=== PATIENT | male | born 1950 | race Caucasian/White ===

== ENCOUNTER 2016-11-18 11:28 | Day surgery (SDC) | payer OTHER ==
[2016-11-18 12:02] VITALS: TEMP 98.1
[2016-11-18] MEDS ORDERED: ALPRAZolam 0.5 MG TAB PO STA (12:26)
--- NOTE | 2016-11-18 14:02 | US ---
EXAMINATION TYPE: US FNA thyroid DATE OF EXAM: 11/18/2016 COMPARISON: Prior ultrasound thyroid 07/23/2009 HISTORY: Thyroid nodule, E04.1 Maximal barrier technique was utilized. Ultrasound using sterile technique. The skin overlying the no dule was localized with ultrasound and the overlying skin prepped and draped. Lidocaine used for loca l anesthesia. 5 passes with a 25-gauge needle were made into the nodule under ultrasound guidance. As pirate specimen submitted to cytology. Following the procedure hemostasis achieved. No immediate comp lication IMPRESSION: Status post ultrasound-guided fine-needle aspiration of thyroid nodule, pathology pending .
[2016-11-18 14:48] VITALS: BP 135/70; PULSE 77; RESP 16
== END 2016-11-18 13:45 | disposition home or self-care (01) ==
LOC: RADPROMAIN 11:28
PROVIDERS: ATTEND Family Medicine
DX: E04.1 Nontoxic single thyroid nodule (principal)
CPT/HCPCS: 10022; 76942; 88173; 88305

== ENCOUNTER → 2016-11-21 | Outpatient (CLI) | payer OTHER ==
--- NOTE | 2016-11-21 16:54 | US ---
EXAMINATION TYPE: US carotid duplex BILAT DATE OF EXAM: 11/21/2016 COMPARISON: NONE CLINICAL HISTORY: I73.9 peripheral vascular disease. bruit EXAM MEASUREMENTS: RIGHT: Peak Systolic Velocity (PSV) cm/sec ----- Right CCA: 120.0 ----- Right ICA: 127.3 ----- Right ECA: 138.3 ICA/CCA ratio: 1.1 RIGHT: End Diastole cm/sec ----- Right CCA: 35.7 ----- Right ICA: 38.7 ----- Right ECA: 20.4 LEFT: Peak Systolic Velocity (PSV) cm/sec ----- Left CCA: 110.8 ----- Left ICA: 127.0 ----- Left ECA: 162.5 ICA/CCA ratio: 1.1 LEFT: End Diastole cm/sec ----- Left CCA: 29.2 ----- Left ICA: 44.6 ----- Left ECA: 23.6 VERTEBRALS (direction of flow): Right Vertebral: Antegrade Left Vertebral: Antegrade No significant stenosis seen, mildly elevated velocities noted. Bilateral plaque at bulbs. Intimal thickening is evident. There are occasional small plaques present. Doppler waveforms appear n ormal. A larger plaque is in the distal left internal carotid artery. IMPRESSION: 1. Narrowing approaching 50% within the bilateral internal carotid arteries. Visual inspection this may be slightly greater on the left. Ratios are not elevated however. Criteria for Assigning % of Stenosis / Diameter reduction (Estimation based on the indirect measurements of the internal carotid artery velocities (ICA PSV). 1. Normal (no stenosis)=ICA PSV < 125 cm/s: ratio < 2.0: ICA EDV<40 cm/s. 2. Less than 50% stenosis=ICA PSV < 125 cm/s: ratio < 2.0: ICA EDV<40 cm/s. 3. 50 to 69% stenosis=ICA PSV of 125 to 230 cm/s: ratio 2.0 ? 4.0: ICA EDV 40-100 cm/s. 4. Greater than 70% stenosis to near occlusion= ICA PSV > 230 cm/s: ratio > 4.0: ICA EDV > 100 cm/s. 5. Near occlusion= ICA PSV velocities may be low or undetectable: variable ratio and ICA EDV. 6. Total occlusion=unable to detect flow.
== END | disposition home or self-care (01) ==
LOC: RADUSWWP 16:26
PROVIDERS: ATTEND Family Medicine
DX: I65.23 Occlusion and stenosis of bilateral carotid arteries (principal)
CPT/HCPCS: 93880

== ENCOUNTER → 2018-01-27 | Outpatient (CLI) | payer OTHER ==
[2018-01-27 16:05] LABS: Blood Urea Nitrogen 17 mg/dL (9-20)
--- NOTE | 2018-01-27 22:43 | CT ---
EXAMINATION TYPE: CT soft tissue neck w con DATE OF EXAM: 01/27/2018 COMPARISON: None HISTORY: 67-year-old male THROAT HOARSENESS X8 MONTHS TECHNIQUE: Contiguous axial scanning of the soft tissues of the neck performed with IV Contrast, saleem ent injected with 100 mL of Isovue 300. Coronal/sagittal reconstructions performed. CT DLP: 624 mGycm Automated exposure control for dose reduction was used. FINDINGS: Moderate to severe mucosal thickening within the ethmoid air cells and frontal sinuses, complete opac ification of the right sphenoid sinus, and mild mucosal thickening along the floors of the bilateral maxillary sinuses. Mastoid air cells are well pneumatized. Visualized intracranial structures, orbits and globes are clear. Nasopharynx is clear. Oropharynx is clear. Epiglottis and prevertebral soft tissues are within normal limits. The glottic and subglottic structures as well as the tracheal column and visualized upper lungs are c lear. Heterogeneous enlargement of the left lobe of the thyroid gland should be correlated with patient's p revious renal ultrasound. The submandibular and parotid glands are satisfactory. No cervical lymphadenopathy no suspicious neck masses seen. Lymph nodes in the upper neck measuring 8 mm Bones: Mild to moderate degenerative disc disease mid to lower cervical spine. IMPRESSION: 1. NO ABNORMAL SOFT TISSUE SWELLING, MUCOSAL SPACE ABNORMALITY, OR CERVICAL LYMPHADENOPATHY SEEN. 2. MODERATE TO SEVERE CHRONIC PANSINUS DISEASE. 3. HETEROGENEOUS ENLARGEMENT OF THE LEFT LOBE OF THE THYROID GLAND CAN BE CORRELATED WITH PATIENT'S P REVIOUS THYROID ULTRASOUND AND FNA.
== END | disposition home or self-care (01) ==
LOC: RADCTMAIN 15:25
PROVIDERS: ATTEND Otolaryngology
DX: E04.9 Nontoxic goiter, unspecified (principal); R49.0 Dysphonia
CPT/HCPCS: 82565; 84520; 70491; 36415; Q9967

== ENCOUNTER → 2018-02-08 | Outpatient (CLI) | payer OTHER ==
--- NOTE | 2018-02-08 17:42 | US ---
EXAMINATION TYPE: US thyroid st tissue head/neck DATE OF EXAM: 02/08/2018 COMPARISON: CT 01/27/2018 and FNA from 11/18/2016 CLINICAL HISTORY: 67-year-old male E04.[address], pt states recent change in voice TECHNIQUE: Multiple sonographic images of the thyroid gland are obtained. GLAND SIZE: Right Lobe: 4.0 x 1.5 x 1.1 cm Overall Parenchyma: homogenous Left Lobe: 4.1 x 1.9 x 1.6 cm Overall Parenchyma: homogeneous Isthmus Thickness: 0.2 cm NODULES RIGHT: # of nodules measured on right: 0 LEFT: # of nodules measured on left: 2 1. 2.1 X 1.8 x 1.4 cm isoechoic solid nodule at the mid pole with well-defined margins; This nodul e is wider than tall and shows intranodular vascularity. Prior size: 2.1 x 1.8 x 1.7 cm, seen on FNA 2. 0.7 X 0.4 x 0.5 cm hypoechoic solid nodule at the mid pole with well-defined margins; This nodul e is wider than tall and shows intranodular vascularity. Prior size: The patient 11/18/2016 FNA exam, a 4 mm nodule (stable in this dimension) is seen in t his same location but is not imaged in the long axis plane. Suspect this nodule to be stable. Bilateral neck scanned, no evidence of lymphadenopathy. Two nodules left lobe. IMPRESSION: 1. Solitary 2.1 cm solid nodule in the left midpole, previously sampled on 11/18/2016, not significant ly changed in the interval. 2. A second 7 mm solid nodule just adjacent seems to have also been present on 11/18/2016.
== END | disposition home or self-care (01) ==
LOC: RADUSWWP 13:21
DX: E04.2 Nontoxic multinodular goiter (principal)
CPT/HCPCS: 76536

== ENCOUNTER → 2018-04-26 | Outpatient (CLI) | payer OTHER ==
[~2018-04-26] MED LIST: REGADENOSON 0.4 MG/5 ML SYRINGE IV ONE
--- NOTE | 2018-04-26 12:51 | NM ---
EXAMINATION TYPE: NM stress lexiscan cardiolite DATE OF EXAM: 04/26/2018 COMPARISON: NONE HISTORY: Chest pain TECHNIQUE: After the intravenous administration of 10.18 mCi Tc 99m Sestamibi - Cardiolite resting S PECT images acquired 45 minutes post injection. The patient received 0.4mg Lexiscan, 25.7 mCi Tc 99m Sestamibi - Stress images obtained [address] injection FINDINGS: Review of stress and rest SPECT images demonstrates no distinct perfusion abnormality. Gated analysi s shows normal wall motion with an estimated left ventricular ejection fraction of 70 %. Transient is chemic dilatation coefficient measures 1.0, within normal limits IMPRESSION: No scintigraphic evidence for reversible ischemia.
--- NOTE | 2018-04-26 14:13 | EST ---
EXERCISE STRESS AGE: 67 SEX: M HT: 5'8" WT: 180 PROTOCOL: Cardiolite Lexiscan Stress Test HEART RATE REST: 65 BLOOD PRESSURE REST: 149/64 MAXIMUM HEART RATE ACHIEVED: 104 MAXIMUM BLOOD PRESSURE: 159/54 85% MPHR: 132 100% MPHR: 155 INDICATIONS: Chest pain. CLINICAL INFORMATION: Baseline rhythm is sinus mechanism, rate 65, normal axis, intervals. Normal echocardiogram. Baseline blood pressure 149/64 mmHg. Patient received an injection of Lexiscan. Electrocardiographic monitoring revealed no evidence of diagnostic ischemic ST deviation. Cardiolite was injected per protocol. CONCLUSION: 1. Nondiagnostic electrocardiogram stress testing. 2. Nuclear images will be reported separately. MMODL / IJN: [id number] /
== END | disposition home or self-care (01) ==
LOC: RADNMMAIN 08:34
DX: R07.89 Other chest pain (principal)
CPT/HCPCS: 93017; 78452; A9500; J2785

== ENCOUNTER 2018-05-14 09:03 | Day surgery (SDC) | payer OTHER ==
[2018-05-12 10:23] VITALS: BMI 27.3
[~2018-05-14 09:03] MED LIST changes: +LACTATED RINGERS 1,000 ML IV SCH; -REGADENOSON 0.4 MG/5 ML SYRINGE IV ONE
[2018-05-14 09:31] VITALS: RESP 16; TEMP 97.9
[2018-05-14] MEDS ORDERED: LIDOCAINE 1% 20 ML VIAL (10MG/ML) FOR IV START INTRADERMA ONE (09:33)
[2018-05-14] MEDS ORDERED: LIDOCAINE 1% INJ 10MG/ML (20 ML MDV) ONE (09:59)
[2018-05-14] MEDS ORDERED: PROPOFOL 10 MG/ML 20 ML VIAL IV ONE (09:59)
--- NOTE | 2018-05-14 10:22 | P.PCN ---
Date of Procedure: 05/14/18 Procedure(s) Performed: BRIEF HISTORY: Patient is a 67-year-old pleasant white male, scheduled for an elective colonoscopy as a part of screening for colorectal neoplasia. PROCEDURE PERFORMED: Colonoscopy with snare polypectomy. PREOPERATIVE DIAGNOSIS: Screening for colon cancer. IV sedation per Anesthesia. PROCEDURE: After informed consent was obtained, the patient, was brought into the endoscopy unit. IV sedation was administered by Anesthesia under continuous monitoring. Digital rectal examination was normal. Initially the Olympus CF- 160 flexible video colonoscope was then inserted in the rectum, gradually advanced into the cecum without any difficulty. Careful examination was performed as the scope was gradually being withdrawn. Ileocecal valve and the appendiceal orifice were visualized and appeared normal. Prep was excellent. Mucosa of the cecum, appeared normal. In the ascending colon there was a 5 mm polyp that was removed by snare polypectomy. The rest of the ascending colon, transverse colon, descending colon, sigmoid colon, and rectum appeared normal. The proximal rectum there was another 5 mm sessile polyp removed by snare polypectomy. Retroflexion was performed in the rectum and no lesions were seen. The patient tolerated the procedure well. IMPRESSION: 5 mm sessile ascending colon polyp status post polypectomy 5 mm sessile proximal rectal polyp status post polypectomy . RECOMMENDATIONS: Findings of this examination were discussed with the patient as well as his family. He was advised to follow with the biopsy results. If the biopsy shows adenoma, he can have a repeat colonoscopy in 5 years.
[2018-05-14 10:39] VITALS: BP 146/75; PULSE 81
== END 2018-05-14 11:04 | disposition home or self-care (01) ==
LOC: ORWHC2ENDO 09:03
PROVIDERS: ATTEND Internal Medicine Gastroenterology
DX: Z12.11 Encounter for screening for malignant neoplasm of colon (principal); D12.2 Benign neoplasm of ascending colon; D12.8 Benign neoplasm of rectum; Z79.82 Long term (current) use of aspirin; Z79.899 Other long term (current) drug therapy; Z72.0 Tobacco use; E07.9 Disorder of thyroid, unspecified; K21.9 Gastro-esophageal reflux disease without esophagitis; R42 Dizziness and giddiness; Z88.0 Allergy status to penicillin; Z88.8 Allergy status to other drugs, medicaments and biological substances
CPT/HCPCS: 88305; 45385; J2001; J2704

== ENCOUNTER → 2018-06-02 | Outpatient (CLI) | payer OTHER | END | disposition home or self-care (01) | LOC: RADUSWWP 09:39 | DX: R07.89 Other chest pain (principal); R53.83 Other fatigue | CPT/HCPCS: 93923 ==

== ENCOUNTER → 2018-08-20 | Day surgery (SDC) | payer OTHER ==
[2018-08-19 09:22] VITALS: BMI 26.6
[~2018-08-20] MED LIST changes: +LIDOCAINE 1% 20 ML VIAL (10MG/ML) FOR IV START INTRADERMA PRN; +LIDOCAINE 1% INJ 10MG/ML (20 ML MDV) ONE; +PROPOFOL 10 MG/ML 20 ML VIAL IV ONE
[2018-08-20 13:29] VITALS: TEMP 98.2
--- NOTE | 2018-08-20 14:26 | P.PCN ---
Date of Procedure: 08/20/18 Procedure(s) Performed: BRIEF HISTORY: Patient is a 67-year-old, pleasant, white male, scheduled for an upper endoscopy as a part of evaluation of persistent epigastric pain, early satiety and weight loss of 10 pounds in the last 3 months duration. He had upper endoscopy done at [facility] a year ago and was diagnosed with gastric ulcer. Repeat upper endoscopy 6 weeks later revealed complete healing of the gastric ulcer. He continues to have persistent symptoms since then. Recent CT of abdomen and pelvis was negative.. PROCEDURE PERFORMED: Esophagogastroduodenoscopy with biopsy. PREOPERATIVE DIAGNOSIS: Persistent epigastric pain of 1 year duration. IV sedation per anesthesia. PROCEDURE: After informed consent was obtained, the patient was brought into the endoscopy unit. IV sedation was administered by Anesthesia under continuous monitoring. Initially the Olympus GIF-140 video endoscope was inserted into the mouth. Esophagus intubated without any difficulty. It was gradually advanced into the stomach and duodenum and carefully examined. The bulb and the second part of the duodenum appeared normal. The scope at this time was withdrawn to the stomach, adequately insufflated with air, and upon careful examination, mucosa of the antrum has scattered erosions and biopsies were done from this area. The body, cardia and the fundus appeared normal. The scope was then withdrawn into the esophagus. The GE junction was located at 40 cm from the incisors. The esophagus appeared normal. There were no erosions or ulcerations seen and the patient tolerated the procedure well. IMPRESSION: 1. Scattered erosions in the antrum consistent with gastritis. 2. No evidence of esophagitis or peptic ulcer disease.. RECOMMENDATIONS: The findings of this examination were discussed with the patient as well as his family. He was advised to follow with the biopsy results. He will continue with Nexium 20 mg daily and follow antireflux measures. If he has persistent symptoms I will schedule him for a gastric emptying scan to investigate this further.
[2018-08-20 14:33] VITALS: RESP 17
[2018-08-20 14:42] VITALS: BP 132/72; PULSE 72
== END ==
LOC: ORWHC2ENDO 12:13
PROVIDERS: ATTEND Internal Medicine Gastroenterology
DX: K29.50 Unspecified chronic gastritis without bleeding (principal); I10 Essential (primary) hypertension; E78.5 Hyperlipidemia, unspecified; E04.9 Nontoxic goiter, unspecified; M19.90 Unspecified osteoarthritis, unspecified site; K21.0 Gastro-esophageal reflux disease with esophagitis; Z79.82 Long term (current) use of aspirin; Z79.899 Other long term (current) drug therapy; Z88.0 Allergy status to penicillin; Z88.8 Allergy status to other drugs, medicaments and biological substances
CPT/HCPCS: 88305; 43239; J2001; J2704

== ENCOUNTER → 2018-08-30 | Outpatient (CLI) | payer OTHER ==
--- NOTE | 2018-08-30 11:04 | NM ---
EXAMINATION TYPE: NM gastric emptying study DATE OF EXAM: 08/30/2018 COMPARISON: NONE HISTORY: Nausea and vomiting Following administration of mCi Tc 99m Sulfur Colloid with 1 cup of oatmeal projection images of the abdomen were obtained 10 minutes post ingestion. When possible, both anterior and posterior projectio n images were obtained to allow the calculation of the geometric mean activity. Clearance: 100 % Half-life: 34 min Gastroesophagel reflux: None IMPRESSION: Gastric emptying: rapid Gastroesophageal reflux: None Gastric emptying normal percentage values: 30 minutes: <70% of retention (> 30% emptying) suggests abnormally fast emptying. 60 minutes: <90% retention (>10% emptying) is normal; less than 30% retention (>70% emptying) suggest s abnormally rapid emptying. 90 minutes: <65% retention (> 35% emptying) is normal. 120 minutes: <60% retention (> 40% emptying) is normal. 180 minutes: <30% retention (> 70% emptying) is normal. Gastric emptying T-1/2: Solid: The normal range is 60-105 minutes Liquid only: Normal range is 10-45 minutes. Liquid only-children: At 60 minutes, normal range is 44-58 % . Liquid only-infants: At 60 minutes, normal range is 32-64 %.
== END ==
LOC: RADNMMAIN 06:45
PROVIDERS: ATTEND Internal Medicine Gastroenterology
DX: R11.2 Nausea with vomiting, unspecified (principal)
CPT/HCPCS: 78264; A9541

== ENCOUNTER → 2018-10-01 | Outpatient (CLI) | payer OTHER ==
--- NOTE | 2018-10-01 14:10 | US ---
EXAMINATION TYPE: US scrotum with doppler. Grayscale and color Doppler Duplex imaging performed of melquiades winters scrotum. DATE OF EXAM: 10/01/2018 COMPARISON: NONE CLINICAL HISTORY: N50.812 Left testicular pain. Left testicle pain EXAM MEASUREMENTS: TESTICLES: Right Testicle: 3.9 x 2.4 x 4.1 cm Left Testicle: 4.0 x 2.2 x 3.6 cm EPIDIDYMIS HEAD: Right Epididymis: 1.2 cm Left Epididymis: 1.2 cm Doppler performed to assess for testicular vascularity; good bilateral color flow and waveforms are s een. There is no evidence of testicular torsion. Presence of hydroceles: No Presence of varicoceles: No No abnormality visualized to account for pt's symptoms IMPRESSION: 1. No distinct abnormality appreciated.
== END | disposition home or self-care (01) ==
LOC: RADUSWWP 13:20
DX: N50.812 Left testicular pain (principal)
CPT/HCPCS: 76870; 93975

== ENCOUNTER → 2018-11-11 | Outpatient (CLI) | payer OTHER ==
--- NOTE | 2018-11-11 15:31 | US ---
EXAMINATION TYPE: US thyroid st tissue head/neck DATE OF EXAM: 11/11/2018 COMPARISON: US CLINICAL HISTORY: E04.2 Nontoxic multinodular goiter. F/U GLAND SIZE: Right Lobe: 4.4 x 1.3 x 1.2 cm Overall Parenchyma: homogenous Left Lobe: 4.0 x 1.8 x 1.7 cm Overall Parenchyma: homogeneous Isthmus Thickness: 0.2 cm NODULES LEFT: # of nodules measured on left: 2 1. 2.2 X 1.7 x 1.4 cm isoechoic solid nodule at the mid pole with well-defined margins; This nodul e is wider than tall and shows intranodular vascularity. Prior size: 2.1 x 1.8 x 1.4 cm 2. 0.8 X 0.4 x 0.5 cm hypoechoic solid nodule at the mid pole with well-defined margins; This nodul e is wider than tall and shows intranodular vascularity. Prior size: 0.7 x 0.4 x 0.5 cm Bilateral neck scanned, no evidence of lymphadenopathy. Stable nodules left lobe. IMPRESSION: Essentially stable thyroid ultrasound
== END | disposition home or self-care (01) ==
LOC: RADUSWWP 12:25
PROVIDERS: ATTEND Internal Medicine Endocrinology, Diabetes & Metabolism
DX: E04.2 Nontoxic multinodular goiter (principal)
CPT/HCPCS: 76536

== ENCOUNTER 2019-02-26 18:06 | Observation (INO) | payer OTHER, MEDICARE ==
[~2019-02-26 18:06] MED LIST changes: +FLUTICASONE 50MCG/SPRAY NASAL 16GM EA NOSTRIL PRN; -LACTATED RINGERS 1,000 ML IV SCH; -LIDOCAINE 1% 20 ML VIAL (10MG/ML) FOR IV START INTRADERMA PRN; -LIDOCAINE 1% INJ 10MG/ML (20 ML MDV) ONE; -PROPOFOL 10 MG/ML 20 ML VIAL IV ONE
[2019-02-26] MEDS ORDERED: NITROGLYCERIN SL TABS 0.4 MG TAB SUBLINGUAL PRN (18:47)
[2019-02-26] MEDS ORDERED: MORPHINE SULFATE 4 MG/ML SYRINGE IVP PRN (18:50)
--- NOTE | 2019-02-26 19:00 | ED ---
Chest Pain HPI - General Source: patient Mode of arrival: EMS Limitations: no limitations <Arleth Kramer - Last Filed: 02/26/19 20:24> <Shanti Roper - Last Filed: 03/01/19 23:01> - General Chief Complaint: Chest Pain Stated Complaint: chest pain Time Seen by Provider: 02/26/19 18:17 - History of Present Illness Initial Comments: 68 year-old male patient presents to the emergency department today for evaluation of midsternal chest pain. He is a transfer from [facility] for admission for cardiology evaluation. States he's been having pain for the last couple of days. States it is intermittent especially with activity. Denies any shortness of breath with symptoms. States he was feeling nauseated and did have some sweats. He denies any numbness, tingling, weakness to his extremities. States he has been having some upper abdominal discomfort. Denies any constipation or diarrhea. States he does have history of high blood pressure and cholesterol. States he quit smoking 2 years ago. States he has never seen a legal service specialist. There is family history of coronary artery disease, father had [place] in early 60s. Patient denies any recent rash, fever, chills, back pain, hematuria, dysuria, urinary urgency, urinary frequency, headache, visual changes, or any other complaints. (Arleth Kramer) - Related Data Home Medications Medication Instructions Recorded Confirmed Carvedilol [Coreg*] 12.5 mg PO BID 11/12/16 02/26/19 Losartan Potassium 100 mg PO DAILY 11/12/16 02/26/19 Multivitamin [Multiple Vitamins] 1 tab PO DAILY 11/12/16 02/26/19 Aspirin [Adult Low Dose Aspirin EC] 81 mg PO DAILY 05/12/18 02/26/19 Esomeprazole Magnesium [NexIUM] 20 mg PO DAILY 08/19/18 02/26/19 Doxylamine Succinate [Unisom] 25 mg PO HS PRN 02/26/19 02/26/19 Fluticasone Nasal [place] [Flonase 2 spr EA NOSTRIL DAILY PRN 02/26/19 02/26/19 Nasal [place]] Allergies Allergy/AdvReac Type Severity Reaction Status Date / Time lisinopril Allergy Cough Verified 02/26/19 21:35 Penicillins Allergy Rash/Hives Verified 02/26/19 21:35 Review of Systems ROS Other: All systems not noted in ROS Statement are negative. <Rosa MariaCory mendozaina Saleem - Last Filed: 02/26/19 20:24> ROS Other: All systems not noted in ROS Statement are negative. <Shanti Roper Shin - Last Filed: 03/01/19 23:01> ROS Statement: Those systems with pertinent positive or pertinent negative responses have been documented in the HPI. EKG Findings - EKG Comments: EKG Findings:: EKG reviewed from [facility] shows normal sinus rhythm with PVCs. Ventricular rate is 78, MT interval 164, QRS duration 74, QT 380, QTc 433. No evidence of ST elevation or depression. <NiaCoryArleth Saleem - Last Filed: 02/26/19 20:24> Past Medical History Past Medical History: Cancer, GERD/Reflux, Hyperlipidemia, Hypertension, Osteoarthritis (OA), Thyroid Disorder Additional Past Medical History / Comment(s): hiatal hernia, Hx of stomach ulcer with anemia.,thyroid nodule/ goiter, cyst on kidney, skin cancer, BPH., states having pain in stomach. History of Any Multi-Drug Resistant Organisms: None Reported Additional Past Surgical History / Comment(s): thyroid biopsy x 3- last 04/2018, skin cancer removed from face, EGD. Past Anesthesia/Blood Transfusion Reactions: No Reported Reaction, Motion Sickness Additional Past Anesthesia/Blood Transfusion Reaction / Comment(s): vertigo Past Psychological History: Anxiety Smoking Status: Former smoker Past Alcohol Use History: None Reported Past Drug Use History: None Reported - Past Family History Father Family Medical History: No Reported History Mother Family Medical History: Cancer <NiaArleth Saleem - Last Filed: 02/26/19 20:24> General Exam Limitations: no limitations General appearance: alert, in no apparent distress, other (Physical well- developed, well-nourished adult male patient in no acute distress. Vital signs upon presentation are temperature 98.3F, pulse 63, respirations 18, blood pressure 131/76, pulse ox 99% on room air.) Eye exam: Present: normal appearance, PERRL, EOMI. Absent: scleral icterus, conjunctival injection, periorbital swelling ENT exam: Present: normal exam, normal oropharynx, mucous membranes moist Respiratory exam: Present: normal lung sounds bilaterally. Absent: respiratory distress, wheezes, rales, rhonchi, stridor, chest wall tenderness Cardiovascular Exam: Present: regular rate, normal rhythm, normal heart sounds. Absent: systolic murmur, diastolic murmur, rubs, gallop, clicks GI/Abdominal exam: Present: soft, tenderness (Midepigastric tenderness), normal bowel sounds. Absent: distended, guarding, rebound, rigid Neurological exam: Present: alert, oriented X3, CN II-XII intact Psychiatric exam: Present: normal affect, normal mood Skin exam: Present: warm, dry, intact, normal color. Absent: rash <Arleth Kramer - Last Filed: 02/26/19 20:24> Course Vital Signs 02/26/19 02/26/19 02/26/19 18:14 19:45 20:30 Temperature 98.3 F 98.0 F Pulse Rate 63 66 68 Respiratory 18 18 18 Rate Blood Pressure 131/76 120/67 108/67 O2 Sat by Pulse 99 98 98 Oximetry Chest Pain MDM <Arleth Kramer - Last Filed: 02/26/19 20:24> <Shanti Roper - Last Filed: 03/01/19 23:01> - [facility] 68-year-old male patient presented to the emergency department today as a transfer from [facility] for chest pain and cardiology evaluation. Patient having chest pain for the last couple of days. Physical examination is unremarkable. I did review labs from the other hospital showed negative troponin, no other abnormalities. Chest x-ray was clear. We did repeat troponin upon arrival, this was again negative. I also added a lipase for abdominal discomfort midepigastric tenderness was negative as well. Patient will be admitted for cardiology evaluation. He received aspirin at the hospital prior to coming in. He is made aware of all results and plan, he is agreeable. (Arleth Kramer) I was available for consultation in the emergency department. The history and physical exam were done by the midlevel provider. I was consulted for this patients care. I reviewed the case with the midlevel provider and based on their presentation of the patient, I agree with the assessment, medical decision making and plan of care as documented. I evaluated the patient myself. Chart was dictated using Flashnotes dictation software. Attempts were made to correct any dictation errors however some typographical errors may persist. (Shanti Roper) Disposition Decision to Admit Reason: Admit from EC Decision Date: 02/26/19 Decision Time: 19:00 <Arleth Kramer - Last Filed: 02/26/19 20:24> <Shanti Roper - Last Filed: 03/01/19 23:01> Clinical Impression: Chest pain Disposition: ADMITTED IP TO THIS HOSP Condition: Serious
[2019-02-26] MEDS ORDERED: diphenhydrAMINE 25 MG CAP PO PRN (22:11)
[2019-02-26] MEDS: CARVEDILOL 12.5 MG TAB PO SCH (22:41)
[2019-02-27 06:58] LABS: Cholesterol 197 mg/dL (<200); HDL Cholesterol 28 mg/dL (40-60); LDL Cholesterol,Calculated 149 mg/dL (0-99); Triglycerides 100 mg/dL (<150)
[2019-02-27] MEDS ORDERED: MAG HYDROX/AL HYDROX/SIMETH 30 ML, HYOSCYAMINE ELIXIR 10 ML, CIMETIDINE HCL 300 MG, LID... PO ONE ×4 (07:00)
[2019-02-27] MEDS ORDERED: MAG HYDROX/AL HYDROX/SIMETH 30 ML, HYOSCYAMINE ELIXIR 10 ML, LIDOCAINE VISCOUS 2% 10 ML PO ONE ×3 (07:30)
[2019-02-27] MEDS: CARVEDILOL 12.5 MG TAB PO SCH (08:00)
--- NOTE | 2019-02-27 08:08 | CT ---
EXAMINATION TYPE: CT angio chest DATE OF EXAM: 02/27/2019 7:52 AM COMPARISON: None. HISTORY: Chest pain CT DLP: 463.3 mGycm Automated exposure control for dose reduction was used. CONTRAST: CTA scan of the thorax is performed with IV Contrast, patient injected with 88 mL of Isovue 370, pulm onary embolism protocol. . FINDINGS: There is minimal dependent atelectasis in the dependent portions of the lungs. The lungs ar e otherwise clear. There is no significant axillary, mediastinal or hilar adenopathy. There is no evidence of pulmonary embolus. The aorta is normal in caliber without evidence of dissect ion. The heart is not enlarged. The skull centimeters cystic structure in the right upper quadrant likely originating from the right kidney. There are parapelvic cysts involving the left kidney. There is patchy opacity of the spleen w hich is likely on the basis of the arterial nature of the injection. There are hypertrophic changes w ithin the spine. IMPRESSION: 1. THIS EXAMINATION IS NEGATIVE FOR PULMONARY EMBOLUS. 2. LARGE, SIMPLE APPEARING CYSTIC STRUCTURE IN THE RIGHT UPPER QUADRANT LIKELY REPRESENTS A RENAL CYS T. THIS COULD BE CONFIRMED WITH ULTRASOUND. 3. PARAPELVIC CYSTS INVOLVING THE LEFT KIDNEY. 4. PATCHY OPACITY OF THE SPLEEN, LIKELY DUE TO THE PHASE OF THE CONTRAST INJECTION. 5. DEGENERATIVE CHANGES WITHIN THE SPINE.
[2019-02-27] MEDS ORDERED: ASPIRIN 325 MG TAB PO SCH (09:00)
[2019-02-27] MEDS ORDERED: PANTOPRAZOLE 40 MG TABLET PO SCH (09:00)
[2019-02-27] MEDS ORDERED: LOSARTAN 50 MG TAB PO SCH (09:00)
[2019-02-27] MEDS ORDERED: HYDROCHLOROTHIAZIDE 25 MG TAB PO SCH (09:00)
[2019-02-27] MEDS ORDERED: ASPIRIN 81 MG PO SCH (09:00)
[2019-02-27] MEDS ORDERED: ATORVASTATIN 40 MG TAB PO SCH (09:00)
[2019-02-27] MEDS ORDERED: MULTIVITAMINS, THERA 1 EACH TAB PO SCH (09:00)
[2019-02-27] MEDS ORDERED: SODIUM CHLORIDE 0.9% 1,000 ML IV SCH (09:30)
[2019-02-27] MEDS: NITROGLYCERIN OINT 1 INCH/GM PACKET TOPICAL SCH ×2 (09:31→12:39)
[2019-02-27] MEDS ORDERED: ACETAMINOPHEN TAB 325 MG TAB PO PRN (09:34)
--- NOTE | 2019-02-27 09:53 | P.CRDCN ---
History of Present Illness History of present illness: This is a pleasant 68-year-old male past medical history significant for hypertension, dyslipidemia, gastroesophageal reflux disease, hiatal hernia, stomach ulcer in the past and former nicotine dependence. 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 He underwent a Lexiscan stress test April 2018 that was negative for reversible cardiac ischemia. We have been asked to see him in consultation secondary to chest discomfort. For the previous 2 days intermittently has felt a heavy pressure sensation in the upper anterior chest. His symptoms, at rest and sometimes exacerbated by deep inspiration however not entirely. This pain is somewhat positional when he leans forward the pain improves. The pain is not exacerbated by activity. It mildly radiates through to the back. There is no radiation down the left arm however the right arm he says feels uncomfortable at times. He also recently has been diagnosed with cervical stenosis. He denies associated shortness of breath, dizziness, nausea, vomiting, diaphoresis or palpitations. EKG reveals sinus mechanism no acute ST or T wave abnormalities noted. CTA of the chest requested this morning is negative for pulmonary embolism, large simple appearing cystic structure in the right upper quadrant likely energy conservation representative of a renal cyst, the aorta is normal in caliber with no evidence of dissection. Minimal dependent atelectasis and portions of the lungs bilaterally, otherwise clear. Laboratory data reviewed, previous labs from [facility] reviewed, CBC unremarkable, creatinine 0.9, cardiac enzymes negative 4 in total, LDL 149. Current daily cardiac medications include aspirin 81 mg daily, carvedilol 12.5 mg twice a day, hydrochlorothiazide 25 mg daily and losartan 100 mg daily. At the time of my exam: CONSTITUTIONAL: Denies fever. Denies chills. EYES: Denies blurred vision. Denies vision changes. Denies eye pain. EARS, NOSE, MOUTH & THROAT: Denies headache. Denies sore throat. Denies ear pain. CARDIOVASCULAR: Complains of chest pain. Denies shortness of breath. Denies orthopnea. Denies PND. Denies palpitations. RESPIRATORY: Denies cough. GASTROINTESTINAL: Denies abdominal pain. Denies diarrhea. Denies constipation. Denies nausea. Denies vomiting. MUSCULOSKELETAL: Denies myalgias. INTEGUMENTARY: Denies pruitis. Denies rash. NEUROLOGIC: Denies numbness. Denies tingling. Denies weakness. PSYCHIATRIC: Denies anxiety. Denies depression. ENDOCRINE: Denies fatigue. Denies weight change. Denies polydipsia. Denies polyurina. GENITOURINARY: Denies burning, hematuria or urgency with micturation. HEMATOLOGIC: Denies history of anemia. Denies bleeding. Blood pressure 127/68 heart rate 57 afebrile maintaining oxygen saturation on room air GENERAL: This is a 68-year-old male in no apparent distress at the time of my examination. HEENT: Head is atraumatic, normocephalic. Pupils are equal, round. Sclerae anicteric. Conjunctivae are clear. Mucous membranes of the mouth are moist. Neck is supple. There is no jugular venous distention. No carotid bruit is heard. LUNGS: Clear to auscultation no wheezes, rales or rhonchi. No chest wall tenderness is noted on palpation or with deep breathing. HEART: Regular rate and rhythm without murmurs, rubs or gallops. S1 and S2 heard. ABDOMEN: Soft, nontender. Bowel sounds are heard. No organomegaly noted. EXTREMITIES: No evidence of peripheral edema and no calf tenderness noted. VASCULAR: Radial and dorsalis pedis pulses palpated, no evidence of clubbing. NEUROLOGIC: Patient is awake, alert and oriented x3. ASSESSMENT Chest pain, some pleuritic and positional features however has ongoing chest discomfort with normal EKG 2, negative cardiac enzymes. Hypertension Dyslipidemia History of gastroesophageal reflux disease and hiatal hernia Former nicotine dependence PLAN An acute coronary event has been ruled out. Give a GI cocktail and assess for relief of discomfort. Nitropaste in place and achieved no relief of discomfort. Symptoms are atypical for angina. However, if he continues to have chest discomfort we will consider cardiac catheterization. Obtain 2D echocardiogram and doppler study to assess cardiac structure and function. Thank you kindly for this consultation. Nurse Practitioner note has been reviewed, I agree with a documented findings and plan of care. Patient was seen and examined. Past Medical History Past Medical History: Cancer, GERD/Reflux, Hyperlipidemia, Hypertension, Osteoarthritis (OA), Thyroid Disorder Additional Past Medical History / Comment(s): hiatal hernia, Hx of stomach ulcer with anemia.,thyroid nodule/ goiter, cyst on kidney, skin cancer, BPH History of Any Multi-Drug Resistant Organisms: None Reported Additional Past Surgical History / Comment(s): thyroid biopsy x 3- last 04/2018, skin cancer removed from face, EGD. Past Anesthesia/Blood Transfusion Reactions: No Reported Reaction Additional Past Anesthesia/Blood Transfusion Reaction / Comment(s): vertigo Past Psychological History: Anxiety Smoking Status: Former smoker Past Alcohol Use History: None Reported Past Drug Use History: None Reported - Past Family History Father Family Medical History: No Reported History Mother Family Medical History: Cancer Medications and Allergies Home Medications Medication Instructions Recorded Confirmed Type Carvedilol [Coreg] 12.5 mg PO BID 11/12/16 02/26/19 History Losartan Potassium 100 mg PO DAILY 11/12/16 02/26/19 History Multivitamin [Multiple Vitamins] 1 tab PO DAILY 11/12/16 02/26/19 History Aspirin [Adult Low Dose Aspirin EC] 81 mg PO DAILY 05/12/18 02/26/19 History Hydrochlorothiazide [Hydrodiuril] 25 mg PO DAILY 05/12/18 02/26/19 History Esomeprazole Magnesium [NexIUM] 20 mg PO DAILY 08/19/18 02/26/19 History Doxylamine Succinate [Unisom] 25 mg PO HS PRN 02/26/19 02/26/19 History Fluticasone Nasal [place] [Flonase 2 spr EA NOSTRIL DAILY PRN 02/26/19 02/26/19 History Nasal [place]] Allergies Allergy/AdvReac Type Severity Reaction Status Date / Time lisinopril Allergy Cough Verified 02/26/19 21:35 Penicillins Allergy Rash/Hives Verified 02/26/19 21:35 Physical Exam Vitals: Vital Signs Temp Pulse Pulse Resp BP BP Pulse Ox 02/27/19 04:00 98.1 F 61 18 114/56 96 02/26/19 23:15 98.2 F 64 18 103/56 98 02/26/19 21:23 97.5 F L 60 18 141/69 99 02/26/19 20:30 98.0 F 68 18 108/67 98 02/26/19 19:45 66 18 120/67 98 02/26/19 18:14 98.3 F 63 18 131/76 99 Intake and Output 02/26/19 02/27/19 02/27/19 22:59 06:59 14:59 Other: Voiding Method Toilet Toilet # Voids 1 Weight 83.007 kg Results Cardiac Enzymes 02/26/19 02/27/19 Range/Units 18:50 00:20 Troponin I <0.012 <0.012 (0.000-0.034) ng/mL Lipids 02/27/19 Range/Units 06:21 Triglycerides 100 (<150) mg/dL Cholesterol 197 (<200) mg/dL HDL Cholesterol 28 L (40-60) mg/dL Current Medications Generic Name Dose Route Start Last Admin Trade Name Freq PRN Reason Stop Dose Admin Aspirin 81 mg 02/27/19 09:00 Aspirin PO DAILY [facility] Atorvastatin Calcium 40 mg 02/27/19 09:00 Lipitor PO DAILY [facility] Carvedilol 12.5 mg 02/26/19 22:15 02/26/19 22:41 Coreg PO 12.5 mg BID-W/MEALS [facility] Administration Al Hydroxide/Mg Hydroxide 30 0 ml 02/27/19 07:30 ml/ Hyoscyamine 10 ml/ PO 02/27/19 07:31 Lidocaine HCl 10 ml ONCE ONE Diphenhydramine HCl 25 mg 02/26/19 22:11 Benadryl PO HS PRN Insomnia Fluticasone Propionate 2 spray 02/26/19 09:00 Flonase Nasal [place] EA NOSTRIL DAILY PRN Allergy Symptoms Hydrochlorothiazide 25 mg 02/27/19 09:00 Hydrodiuril PO DAILY [facility] Losartan Potassium 100 mg 02/27/19 09:00 Cozaar PO DAILY [facility] Morphine Sulfate 4 mg 02/26/19 18:50 Morphine Sulfate (Inj) IVP Q6HR PRN Pain Multivitamins 1 each 02/27/19 09:00 Theragran PO DAILY [facility] Nitroglycerin 0.4 mg 02/26/19 18:47 Nitrostat SUBLINGUAL Q5M PRN Chest Pain Pantoprazole Sodium 40 mg 02/27/19 09:00 Protonix PO DAILY [facility] Sodium Chloride 10 ml 02/26/19 21:00 02/26/19 22:41 Saline Flush IV 10 ml BID [facility] Administration Intake and Output 02/26/19 02/27/19 02/27/19 22:59 06:59 14:59 Other: Voiding Method Toilet Toilet # Voids 1 Weight 83.007 kg
[2019-02-27] MEDS ORDERED: ONDANSETRON 4 MG/2 ML VIAL IVP PRN (11:17)
--- NOTE | 2019-02-27 13:26 | P.DS ---
Providers Date of admission: 02/26/19 20:08 Attending physician: Leola Pacheco Consults: 02/26/19 18:47 Consult Physician Urgent Consulting Provider: [facility] Consult Reason/Comments: Chest Pain Do you want consulting provider notified?: Yes Primary care physician: [facility] Hospital Course: As mentioned in HPI Patient Condition at Discharge: Serious Plan - Discharge Summary Discharge Rx Participant: No New Discharge Prescriptions: Continue Carvedilol [Coreg*] 12.5 mg PO BID Losartan Potassium 100 mg PO DAILY Multivitamin [Multiple Vitamins] 1 tab PO DAILY Aspirin [Adult Low Dose Aspirin EC] 81 mg PO DAILY Esomeprazole Magnesium [NexIUM] 20 mg PO DAILY Fluticasone Nasal [place] [Flonase Nasal [place]] 2 spr EA NOSTRIL DAILY PRN PRN Reason: Allergy Symptoms Doxylamine Succinate [Unisom] 25 mg PO HS PRN PRN Reason: Insomnia Discontinued Hydrochlorothiazide [Hydrodiuril] 25 mg PO DAILY Discharge Medication List Carvedilol [Coreg*] 12.5 mg PO BID 11/12/16 [History] Losartan Potassium 100 mg PO DAILY 11/12/16 [History] Multivitamin [Multiple Vitamins] 1 tab PO DAILY 11/12/16 [History] Aspirin [Adult Low Dose Aspirin EC] 81 mg PO DAILY 05/12/18 [History] Esomeprazole Magnesium [NexIUM] 20 mg PO DAILY 08/19/18 [History] Doxylamine Succinate [Unisom] 25 mg PO HS PRN 02/26/19 [History] Fluticasone Nasal [place] [Flonase Nasal [place]] 2 spr EA NOSTRIL DAILY PRN 02/26/19 [History] Follow up Appointment(s)/Referral(s): [facility] [Primary Care Provider] - 3 Days Discharge Disposition: HOME SELF-CARE
--- NOTE | 2019-02-27 13:26 | P.HPIM ---
History of Present Illness 8-year-old male came in with the chest pain retrosternal area patient does have history of restless with reflux disease and patient just started after eating breakfast. Patient is already on Nexium at home. Patient has on and off chest pain some of which goes to the left hand patient had a Lexiscan stress test in 2017 which was negative for any reversible ischemia patient had negative troponins EKG didn't show any acute ST-T wave changes CAT scan of the chest did not show any pulmonary embolism or pneumonia. Patient denied any cough chest pain is nonpleuritic not associated with food mild chest pain mostly heavy pressure occasional sharpness lasted for 3 hours. Patient does have cervical degenerative disease which may be contributing to his chest pain as well as cervical stenosis with a be contributing to his chest pain. Patient was cleared by cardiology to be discharged later in the day. Doesn't have any chest pain upon ambulation patient will follow with cardiology as an outpatient for outpatient stress us in 2 weeks. Review of Systems REVIEW OF SYSTEMS: CONSTITUTIONAL: No fever, no malaise, no fatigue. HEENT: No recent visual problems or hearing problems. Denied any sore throat. CARDIOVASCULAR: No orthopnea, PND, no palpitations, no syncope. PULMONARY: No shortness of breath, no cough, no hemoptysis. GASTROINTESTINAL: No diarrhea, no nausea, no vomiting, no abdominal pain. NEUROLOGICAL: No headaches, no weakness, no numbness. HEMATOLOGICAL: Denies any bleeding or petechiae. GENITOURINARY: Denies any burning micturition, frequency, or urgency. MUSCULOSKELETAL/RHEUMATOLOGICAL: Denies any joint pain, swelling, or any muscle pain. ENDOCRINE: Denies any polyuria or polydipsia. The rest of the 14-point review of systems is negative. Past Medical History Past Medical History: Cancer, GERD/Reflux, Hyperlipidemia, Hypertension, Osteoarthritis (OA), Thyroid Disorder Additional Past Medical History / Comment(s): hiatal hernia, Hx of stomach ulcer with anemia.,thyroid nodule/ goiter, cyst on kidney, skin cancer, BPH History of Any Multi-Drug Resistant Organisms: None Reported Additional Past Surgical History / Comment(s): thyroid biopsy x 3- last 04/2018, skin cancer removed from face, EGD. Past Anesthesia/Blood Transfusion Reactions: No Reported Reaction Additional Past Anesthesia/Blood Transfusion Reaction / Comment(s): vertigo Past Psychological History: Anxiety Smoking Status: Former smoker Past Alcohol Use History: None Reported Past Drug Use History: None Reported - Past Family History Father Family Medical History: No Reported History Mother Family Medical History: Cancer Medications and Allergies Home Medications Medication Instructions Recorded Confirmed Type Carvedilol [Coreg*] 12.5 mg PO BID 11/12/16 02/26/19 History Losartan Potassium 100 mg PO DAILY 11/12/16 02/26/19 History Multivitamin [Multiple Vitamins] 1 tab PO DAILY 11/12/16 02/26/19 History Aspirin [Adult Low Dose Aspirin EC] 81 mg PO DAILY 05/12/18 02/26/19 History Esomeprazole Magnesium [NexIUM] 20 mg PO DAILY 08/19/18 02/26/19 History Doxylamine Succinate [Unisom] 25 mg PO HS PRN 02/26/19 02/26/19 History Fluticasone Nasal [place] [Flonase 2 spr EA NOSTRIL DAILY PRN 02/26/19 02/26/19 History Nasal [place]] Allergies Allergy/AdvReac Type Severity Reaction Status Date / Time lisinopril Allergy Cough Verified 02/26/19 21:35 Penicillins Allergy Rash/Hives Verified 02/26/19 21:35 Physical Exam Vitals: Vital Signs Temp Pulse Pulse Resp BP BP Pulse Ox 02/27/19 12:00 98.2 F 67 18 125/65 94 L 02/27/19 08:00 98.3 F 57 L 16 127/68 97 02/27/19 04:00 98.1 F 61 18 114/56 96 02/26/19 23:15 98.2 F 64 18 103/56 98 02/26/19 21:23 97.5 F L 60 18 141/69 99 02/26/19 20:30 98.0 F 68 18 108/67 98 02/26/19 19:45 66 18 120/67 98 02/26/19 18:14 98.3 F 63 18 131/76 99 Intake and Output 02/26/19 02/27/19 02/27/19 22:59 06:59 14:59 Other: Voiding Method Toilet Toilet Toilet # Voids 1 Weight 83.007 kg PHYSICAL EXAMINATION: GENERAL: The patient is alert and oriented x3, not in any acute distress. Well developed, well nourished. HEENT: Pupils are round and equally reacting to light. EOMI. No scleral icterus. No conjunctival pallor. Normocephalic, atraumatic. No pharyngeal erythema. No thyromegaly. CARDIOVASCULAR: S1 and S2 present. No murmurs, rubs, or gallops. PULMONARY: Chest is clear to auscultation, no wheezing or crackles. ABDOMEN: Soft, nontender, nondistended, normoactive bowel sounds. No palpable organomegaly. MUSCULOSKELETAL: No joint swelling or deformity. EXTREMITIES: No cyanosis, clubbing, or pedal edema. NEUROLOGICAL: Gross neurological examination did not reveal any focal deficits. SKIN: No rashes. Results Labs: Abnormal Lab Results - Last 24 Hours (Table) 02/27/19 Range/Units 06:21 LDL Cholesterol, Calc 149 H (0-99) mg/dL HDL Cholesterol 28 L (40-60) mg/dL Thrombosis Risk Factor Assmnt - Choose All That Apply Any of the Below Risk Factors Present?: Yes Each Factor Represents 1 point: Obesity (BMI >25), Varicose veins Other Risk Factors: Yes Each Risk Factor Represents 2 Points: Age 61-74 years Other congenital or acquired thrombophilia - If yes, enter type in comment: No Thrombosis Risk Factor Assessment Total Risk Factor Score: 4 Thrombosis Risk Factor Assessment Level: Moderate Risk Assessment and Plan Plan: Chest pain: Possibility of his being musculoskeletal or gastroesophageal reflux disease. Rule out a concurrent syndromes further management and follow-up as mentioned above Hypertension -Hyperlipidemia -Gastroesophageal reflux disease and hiatal hernia patient will continue his Nexium -Rule out pulmonary embolism
[2019-02-27 16:14] VITALS: BP 151/68; PULSE 58; RESP 16; TEMP 97.8
== END 2019-02-27 17:50 | disposition home or self-care (01) ==
LOC: EC 18:06 → 1SOBS 20:08
PROVIDERS: ADMIT Hospitalist; ATTEND Hospitalist
DX: R07.89 Other chest pain (principal); K21.9 Gastro-esophageal reflux disease without esophagitis; K44.9 Diaphragmatic hernia without obstruction or gangrene; M48.02 Spinal stenosis, cervical region; M50.30 Other cervical disc degeneration, unspecified cervical region; I10 Essential (primary) hypertension; E78.5 Hyperlipidemia, unspecified; R11.0 Nausea; R61 Generalized hyperhidrosis; M19.90 Unspecified osteoarthritis, unspecified site; E04.9 Nontoxic goiter, unspecified; D64.9 Anemia, unspecified; N40.0 Benign prostatic hyperplasia without lower urinary tract symptoms; N28.1 Cyst of kidney, acquired; F41.9 Anxiety disorder, unspecified; Z79.82 Long term (current) use of aspirin; Z79.899 Other long term (current) drug therapy; Z88.0 Allergy status to penicillin; Z88.8 Allergy status to other drugs, medicaments and biological substances; Z87.11 Personal history of peptic ulcer disease; Z85.828 Personal history of other malignant neoplasm of skin; Z87.891 Personal history of nicotine dependence; Z82.49 Family history of ischemic heart disease and other diseases of the circulatory system; Z80.9 Family history of malignant neoplasm, unspecified
CPT/HCPCS: 96374; 99285; 36415; 80061; 83690; 84484 ×2; 71275; G0378 ×2; J2405; Q9967

== ENCOUNTER → 2019-04-19 | Outpatient (CLI) | payer OTHER, MEDICARE ==
--- NOTE | 2019-04-19 12:04 | US ---
EXAMINATION TYPE: US liver DATE OF EXAM: 04/19/2019 COMPARISON: NONE CLINICAL HISTORY: K76.89 other specified diseases of the liver. Hx of liver cysts. EXAM MEASUREMENTS: Liver Length: 14.9 cm Gallbladder Wall: .2 cm CBD: .4 cm Right Kidney: 12.8 x 4.7 x 6.4 cm Pancreas: Obscured by bowel gas Liver: Subcentimeter cyst seen. Gallbladder: wnl Evidence for sonographic Medley's sign: No CBD: wnl Right Kidney: Multiple cystic areas seen largest upper pole measuring 12.0 x 7.8 x 8.9 cm. IMPRESSION: Multiple renal cysts noted. Subcentimeter hepatic cyst identified.
== END | disposition home or self-care (01) ==
LOC: RADUSWWP 10:02
PROVIDERS: ATTEND Internal Medicine Gastroenterology
DX: K76.89 Other specified diseases of liver (principal); N28.1 Cyst of kidney, acquired
CPT/HCPCS: 76705

== ENCOUNTER → 2020-04-05 | Outpatient (CLI) | payer OTHER ==
--- NOTE | 2020-04-05 13:48 | US ---
EXAMINATION TYPE: US thyroid st tissue head/neck DATE OF EXAM: 04/05/2020 COMPARISON: US 2019 CLINICAL HISTORY: E04.2 Nontoxic multinodular goiter. Thyroid nodules, history of thyroid FNA GLAND SIZE: Right Lobe: 4.7 x 1.4 x 1.5 cm Overall Parenchyma: homogenous Left Lobe: 4.4 x 1.2 x 1.6 cm Overall Parenchyma: homogeneous Isthmus Thickness: 0.3 cm NODULES RIGHT: # of nodules measured on right: 0 LEFT: # of nodules measured on left: 2 1. 2.2 X 1.6 x 1.3 cm hypoechoic solid nodule at the mid pole with well-defined margins. This nodul e is taller than wide and shows intranodular vascularity. Prior size: 2.2 x 1.7 x 1.4 cm 2. 0.8 X 0.4 x 0.6 cm hypoechoic solid nodule at the medial mid pole with well-defined margins. This nodule is wider than tall and shows intranodular vascularity. Prior size: 0.8 x 0.4 x 0.5 cm ISTHMUS: # of nodules measured in the isthmus: 0 Bilateral neck scanned, no evidence of lymphadenopathy. IMPRESSION: Dominant lesion left lobe of thyroid gland, TR 4, moderately suspicious but stable, fine-needle aspir ation is suggested, was noted to have been performed 11/18/2016, nodule is stable. Subcentimeter nodul e left thyroid also TR4, follow-up recommended
[2020-04-05 13:54] LABS: T4, Free (Free Thyroxine) 0.86 ng/dL (0.78-2.19)
== END | disposition home or self-care (01) ==
LOC: RADUSWWP 12:11
PROVIDERS: ATTEND Internal Medicine Endocrinology, Diabetes & Metabolism
DX: E07.89 Other specified disorders of thyroid (principal); E04.1 Nontoxic single thyroid nodule
CPT/HCPCS: 36415; 76536; 84439; 84443

== ENCOUNTER → 2021-04-16 | Outpatient (CLI) | payer OTHER ==
--- NOTE | 2021-04-16 11:06 | US ---
EXAMINATION TYPE: US thyroid st tissue head/neck DATE OF EXAM: 04/16/2021 COMPARISON: 11/11/2018 CLINICAL HISTORY: E04.2 Nontoxic multinodular goiter. GLAND SIZE: Right Lobe: 4.72 x 1.57 x 1.64 cm Overall Parenchyma: homogenous Left Lobe: 4.40 X 1.86 X 1.98 cm Overall Parenchyma: heterogeneous Isthmus Thickness: 0.3 cm NODULES RIGHT: # of nodules measured on right: 1 1. 0.8 X 0.7 x 0.4 cm, lower lateral, mixed cystic and solid, hypoechoic nodule, which is taller th an wide, with smooth margins, without echogenic foci. LEFT: # of nodules measured on left: 2 1. 1.9 X 1.4 x 1.6 cm, mid mid, mixed cystic and solid, hypoechoic nodule, which is taller than wid e, with lobulated or irregular margins, without echogenic foci. Prior size: 2.2 x 1.7 x 1.4 cm 2. 0.8 X 0.5 x 0.4 cm, mid medial, solid or almost completely solid, hypoechoic nodule, which is t aller than wide, with smooth margins, without echogenic foci. Prior size: 0.8 x 0.4 x 0.5 cm ISTHMUS: # of nodules measured in the isthmus: 0 Bilateral neck scanned, no evidence of lymphadenopathy. IMPRESSION: Nonspecific thyroid nodularity.
[2021-04-16 12:05] LABS: T4, Free (Free Thyroxine) 0.94 ng/dL (0.78-2.19)
== END | disposition home or self-care (01) ==
LOC: RADUSWWP 10:02
PROVIDERS: ATTEND Internal Medicine Endocrinology, Diabetes & Metabolism
DX: E04.2 Nontoxic multinodular goiter (principal)
CPT/HCPCS: 76536; 84439; 84443

== ENCOUNTER → 2022-04-15 | Outpatient (CLI) | payer OTHER ==
--- NOTE | 2022-04-15 18:40 | US ---
EXAMINATION TYPE: US thyroid st tissue head/neck DATE OF EXAM: 04/15/2022 COMPARISON: 04/16/2021 CLINICAL HISTORY: 71-year-old male E04.2 NONTOXIC MULTINODULAR GOITER. Follow-up exam TECHNIQUE: Multiple sonographic images of the thyroid gland are obtained. FINDINGS: GLAND SIZE: Right Lobe: 3.6 x 1.2 x 1.7 cm Overall Parenchyma: heterogenous Left Lobe: 4.1 x 1.4 x 1.9 cm Overall Parenchyma: heterogeneous Isthmus Thickness: 0.2 cm NODULES RIGHT: # of nodules measured on right: 1 1. 0.7 X 0.8 x 0.4 cm, lower , solid or almost completely solid, hypoechoic TR 4 nodule, which is w ider than tall, with smooth margins, without echogenic foci. Prior size: 0.8 x 0.7 x 0.4 cm LEFT: # of nodules measured on left: 2 - previous biopsy 1. 1.9 X 1.3 x 1.6 cm, lower , solid or almost completely solid, hypoechoic TR 4 nodule, which is a s tall as it is wide, with smooth margins, without echogenic foci. Prior size: 1.9 x 1.4 x 1.6 cm 2. 0.6 X 05 x 04 cm, lower , mixed cystic and solid, hypoechoic nodule, which is wider than tall, with smooth margins, without echogenic foci. Prior size: 0.8 x 0.5 x 0.4 cm ISTHMUS: # of nodules measured in the isthmus: 0 Bilateral neck scanned, no evidence of lymphadenopathy. IMPRESSION: Bilateral TR4 nodules measuring up to 1.9 cm on the left. Nodule size is stable. Ongoing follow-up as clinically indicated.
[2022-04-15 18:47] LABS: T4, Free (Free Thyroxine) 1.1 ng/dL (0.800-1.800)
== END | disposition home or self-care (01) ==
LOC: RADUSWWP 12:43
PROVIDERS: ATTEND Internal Medicine Endocrinology, Diabetes & Metabolism
DX: E04.2 Nontoxic multinodular goiter (principal)
CPT/HCPCS: 76536; 84439; 84443

== ENCOUNTER → 2022-10-28 | Outpatient (CLI) | payer OTHER ==
--- NOTE | 2022-11-04 13:02 | US ---
EXAMINATION TYPE: US arterial LE multi level DATE OF EXAM: 10/28/2022 2:04 PM CLINICAL INDICATION: Male, 72 years old with history of I73.89 PERIPHERAL VASCULAR DISEASE; Weakness bilateral legs. pain bilateral feet History of: Smoker: previous Hypertension: yes Diabetic: no Hyperlipidemia: no TIA/CVA: no Previous Vascular Surgery: no [place]: no Vascular Ulcers: no Claudication: no Gangrene: no Doppler Waveforms: Right: Multiphasic Left: Multiphasic Right Brachial Pressure: 125 Left Brachial Pressure: 127 Ankle-Brachial Indices: Right: 1.08 Left: 0.87 Toe Brachial Indices: Right: 0.71 Left: 0.53 IMPRESSION: 1. Normal right AGUILA TBI indices. 2. Abnormal left AGUILA and TBI indices suggestive of mild to moderate atherosclerotic diffuse occlusive disease.
== END | disposition home or self-care (01) ==
LOC: RADUSWWP 13:16
DX: I73.89 Other specified peripheral vascular diseases (principal)
CPT/HCPCS: 93923

== ENCOUNTER 2022-12-24 09:37 | Day surgery (SDC) | payer OTHER ==
[2022-12-18 14:41] VITALS: BMI 28.8
[~2022-12-24 09:37] MED LIST changes: -FLUTICASONE 50MCG/SPRAY NASAL 16GM EA NOSTRIL PRN; +LACTATED RINGERS 1,000 ML IV SCH; +LIDOCAINE 1% (10MG/ML) FOR IV START INTRADERMA PRN
[2022-12-24 10:05] VITALS: TEMP 98
[2022-12-24] MEDS ORDERED: PROPOFOL 10 MG/ML 20 ML VIAL IV ONE (10:54)
--- NOTE | 2022-12-24 11:11 | P.PCN ---
Date of Procedure: 12/24/22 Procedure(s) Performed: BRIEF HISTORY: Patient is a 72-year-old pleasant white male scheduled for an elective colonoscopy as a part of evaluation of prior history of colon polyps. His last coloscopy was 5 years ago. PROCEDURE PERFORMED: Colonoscopy. PREOPERATIVE DIAGNOSIS: History of colon polyps. IV sedation per Anesthesia. PROCEDURE: After informed consent was obtained, the patient, was brought into the endoscopy unit. IV sedation was administered by Anesthesia under continuous monitoring. Digital rectal examination was normal. Initially the Olympus CF-160 flexible video colonoscope was then inserted in the rectum, gradually advanced into the cecum without any difficulty. Careful examination was performed as the scope was gradually being withdrawn. Ileocecal valve and the appendiceal orifice were visualized and appeared normal. Prep was excellent. Mucosa of the cecum, ascending colon, transverse colon, descending colon, sigmoid colon, and rectum appeared normal. At her sigmoid diverticulosis. Retroflexion was performed in the rectum and small internal hemorrhoids were seen. The patient tolerated the procedure well. IMPRESSION: Normal-appearing colon from rectum to cecum with no evidence of colorectal neoplasia Scattered sigmoid diverticulosis Small internal hemorrhoids. RECOMMENDATIONS: Findings of this examination were discussed with the patient as well as his family. He was advised to have a repeat screening colonoscopy in 10 years. 72
[2022-12-24 11:31] VITALS: BP 148/69; PULSE 71; RESP 19
== END 2022-12-24 11:52 | disposition home or self-care (01) ==
LOC: ORWHC2ENDO 09:37
PROVIDERS: ATTEND Internal Medicine Gastroenterology
DX: K57.30 Diverticulosis of large intestine without perforation or abscess without bleeding (principal); K64.8 Other hemorrhoids
CPT/HCPCS: 45378; J2704

== ENCOUNTER → 2023-04-22 | Outpatient (CLI) | payer OTHER ==
--- NOTE | 2023-04-22 12:50 | US ---
EXAMINATION TYPE: US thyroid st tissue head/neck DATE OF EXAM: 04/22/2023 COMPARISON: 04/15/2022 CLINICAL INDICATION: Male, 72 years old with history of E04.2 GOITER; GLAND SIZE: Right Lobe: 4.7 x 1.5 x 1.6 cm Overall Parenchyma: homogeneous Left Lobe: 4.3 x 1.6 x 1.8 cm Overall Parenchyma: homogeneous Isthmus Thickness: 0.3 cm NODULES RIGHT: # of nodules measured on right: 1 1. 0.8 X 0.5 x 0.7 cm, lower medial, Prior size: 0.7 x 0.4 x 0.8 cm TIRADS Score: 0 TIRADS Category 1: Composition: Cystic or almost completely cystic (0 points). Recommendation: No FNA LEFT: # of nodules measured on left: 2 1. 1.7 X 1.5 x 1.1 cm, mid mid, Prior size: 2.0 x 1.6 x 1.3 cm TIRADS Score: 3 TIRADS Category 3: Composition: Solid or almost completely solid (2 points). Echogenicity: Hyperechoic or isoechoic (1 point). Shape: Wider than tall (0 points). Margin: Smooth (0 points). Echogenic foci: None or large comet-tail artifacts (0 points) Recommendation: If >2.5cm: FNA; If >1.5cm: Follow up at 1,3,5 years 2. 0.7 X 0.5 x 0.4 cm, mid medial, Prior size: 0.6 x 0.4 x 0.5 cm TIRADS Score: 4 TIRADS Category 4: Composition: Solid or almost completely solid (2 points). Echogenicity: Hypoechoic (2 points). Shape: Wider than tall (0 points). Margin: Smooth (0 points). Echogenic foci: None or large comet-tail artifacts (0 points) Recommendation: If >1.5cm: FNA; If >1cm: Follow up at 1,2, 3,5 years ISTHMUS: # of nodules measured in the isthmus: 0 Bilateral neck scanned, lymph nodes noted IMPRESSION: Thyroid nodules that meet criteria for follow-up.
[2023-04-22 23:28] LABS: T4, Free (Free Thyroxine) 1.14 ng/dL (0.80-1.80)
== END | disposition home or self-care (01) ==
LOC: RADUSWWP 12:05
PROVIDERS: ATTEND Internal Medicine Endocrinology, Diabetes & Metabolism
DX: E04.2 Nontoxic multinodular goiter (principal)
CPT/HCPCS: 76536; 84439; 84443

== ENCOUNTER → 2023-10-29 | Outpatient (CLI) | payer OTHER ==
--- NOTE | 2023-10-29 12:32 | US ---
EXAMINATION TYPE: US kidneys/renal and bladder DATE OF EXAM: 10/29/2023 COMPARISON: CT 2017, US Liver 2019 CLINICAL INDICATION: Male, 73 years old with history of Cyst of kidney N28.1; Cyst of kidney. EXAM MEASUREMENTS: Right Kidney: 12.6 x 6.2 x 5.5 cm Left Kidney: 12.0 x 5.5 x 5.9 cm Right Kidney: Multiple anechoic areas seen. Largest is at the upper pole: 11.7 x 11.9 x 10.3 cm. Left Kidney: Anechoic area seen at mid: 1.3 x 1.3 x 1.1 cm. Additional anechoic areas seen at mid and lower pole versus appearance of possible dilated collecti ng system? - Area at mid: 3.5 x 1.7 x 1.2 cm. -Area at lower pole: 1.5 x 1.4 x 2.1 cm. Bladder: Appears anechoic. Bilateral Jets seen: No IMPRESSION: 1. Multiple large exophytic cysts of the right kidney. The largest cyst is an upper pole cyst measuri ng 11.7 x 11.9 x 10.3 cm. 2. Small simple cyst of the left kidney. 3. No solid renal masses or hydronephrosis.
== END | disposition home or self-care (01) ==
LOC: RADUSWWP 09:51
PROVIDERS: ATTEND Physician Assistant Medical
DX: N28.1 Cyst of kidney, acquired (principal)
CPT/HCPCS: 76770